=== PATIENT | male | born 1960 | race Caucasian/White ===

== ENCOUNTER 2019-04-28 | Day surgery (SDC) | payer SELFPAY ==
[~2019-04-28] MED LIST: BL IBUPROFEN200 MG PO
== END 2019-04-28 10:45 | disposition home or self-care (01) | DRG 395 ==
PROC: 0DBN8ZX Excision of Sigmoid Colon, Via Natural or Artificial Opening Endoscopic, Diagnostic (ICD-10-PCS; principal; 2019-04-28)
DX: K64.8 Other hemorrhoids (principal); D12.7 Benign neoplasm of rectosigmoid junction; K63.5 Polyp of colon; F17.210 Nicotine dependence, cigarettes, uncomplicated

== ENCOUNTER 2021-03-17 10:23 | Day surgery (SDC) | payer SELFPAY ==
[~2021-03-17 10:23] MED LIST changes: +CYCLOBENZAPRINE10 MG PO; +EUTHYROX50 MCG PO; +MELOXICAM7.5 MG PO; +TYLENOL500 MG PO
[2021-03-17 14:48] VITALS: BP 147/78
== END 2021-03-17 15:07 | disposition home or self-care (01) | DRG 661 ==
LOC: ORM 10:23
PROVIDERS: ATTEND Urology
PROC: 0TF3XZZ Fragmentation in Right Kidney Pelvis, External Approach (ICD-10-PCS; principal; 2021-03-17)
PROC: 0T768DZ Dilation of Right Ureter with Intraluminal Device, Via Natural or Artificial Opening Endoscopic (ICD-10-PCS; 2021-03-17)
DX: N20.0 Calculus of kidney (principal); E03.9 Hypothyroidism, unspecified; F17.210 Nicotine dependence, cigarettes, uncomplicated
CPT/HCPCS: C1769; J0131; J1956; Q9967